=== PATIENT | male | born 2005 | race Two or more races ===

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

== ENCOUNTER 2023-02-16 08:13 | Outpatient (REF) | payer OTHER, SELFPAY ==
[2023-02-16 08:24] LABS: MANUAL DIFF FLAG NO
[2023-02-16 08:33] LABS: Basophils Absolute Auto 0.1 X10*3/uL (0.0-0.2); Eosinophils Absolute Auto 0.3 X10*3/uL (0.0-0.4); Eosinophils Percent Auto 4.5 % (0-4); Hematocrit 45.6 % (42.0-52.0); Imm Gran Abs Auto 0.03 X10*3/uL (0.00-0.03); Imm Gran Pct Auto 0.4 % (0.0-0.4); Lymphocytes Absolute Auto 2.4 X10*3/uL (1.2-4.9); Mean Corpuscular HGB Conc 32.9 g/dl (31.0-36.0); Mean Corpuscular Hemoglobin 28.4 pg (27.0-33.0); Mean Corpuscular Volume 86.4 fL (80.0-98.0); Monocytes Absolute Auto 0.6 X10*3/uL (0.1-1.2); Monocytes Percent Auto 8.7 % (2-11); Neutrophils Absolute Auto 3.6 x10*3/uL (2.0-8.3); Neutrophils Percent Auto 51.4 % (45-73); Platelet Count 246 X10*3/uL (160-400); Red Blood Count 5.28 X10*6/uL (4.60-5.80); Red Cell Distribution Width 12.6 % (11.0-16.0); White Blood Count 7.1 X10*3/uL (4.8-10.8)
[2023-02-16 09:06] LABS: Alanine Aminotransferase 35 U/L (0-40); Albumin Level 4.2 g/dL (3.5-5.0); Alkaline Phosphatase 70 U/L (39-117); Anion Gap 11 (12-20); Aspartate Amino Transferase 19 U/L (5-37); Bilirubin Total 0.9 mg/dL (0.0-1.0); Blood Urea Nitrogen 14 mg/dL (9-16); Calcium 9.3 mg/dL (8.4-10.2); Carbon Dioxide 29 mmol/L (22-29); Chloride 107 mmol/L (96-108); Estimated Glomerular Filt Rate > 60; Glucose Random 88 mg/dL (60-115); Potassium 3.9 mmol/L (3.3-5.1); Sodium 143 mmol/L (135-145); Total Protein 7.4 g/dL (6.5-8.0)
[2023-02-16 09:35] LABS: Folate 15.3 ng/mL (> or = 4.0); TSH reflex Free T4 1.97 uIU/mL (0.32-4.0); Vitamin B12 989 pg/mL (200-900); Vitamin D 25-OH Total 12.8 ng/mL (>30)
== END 2023-02-16 08:14 | disposition home or self-care (01) ==
LOC: HO.LAB 08:13
PROVIDERS: PCP Internal Medicine; Visit Provider Nurse Practitioner Family
DX: Z00.00 Encounter for general adult medical examination without abnormal findings (principal)
CPT/HCPCS: 36415; 80053; 82306; 82607; 82746; 84443; 85025

== ENCOUNTER 2025-06-23 15:49 | Outpatient (AMB) | payer OTHER, SELFPAY ==
--- NOTE | 2025-06-23 15:57 | A.OFFPC_ITS ---
Vital Signs 06/23/25 15:58 Height 5 ft 8 in Weight 212 lb 6 oz BMI 32.3 BP 120/64 Blood Pressure Location Lt brachial Position Sitting Respiration 18 Pulse 73 Pulse Source Pulse Oximeter Temp 97.3 F Temp Source Temporal Artery Scan Pulse Oximetry (%) 95 Oxygen Delivery Method Room Air Intake Visit Reasons: Annual pe Musician Instrumental Required: No Accompanied by: Self / Same As Patient Allergies pine tree Adverse Reaction (Mild, Uncoded 06/23/25 16:20) Swelling Medication List - Last Reconciled 06/23/25 by HEIDI Bloom cholecalciferol (vitamin D3) 50 mcg PO DAILY loratadine (Claritin) 10 mg PO DAILY Tobacco use date assessed: 06/23/25 Dental Screening Dental Screen Date: 06/23/25 Did you have a dental visit in the last 12 months?: Yes Did you have a dental problem in the last 6 months where you did not have access to dental care?: No Was dental information given to patient?: Patient has dentist HPI Annual pe HPI Details The patient is a 20-year-old male presenting for annual physical. He is noted to have allergic rhinitis and vitamin D deficiency. The patient reports allergies primarily to pine tree pollen, which occur seasonally, typically at the start of spring and sometimes in winter. He manages these symptoms with Claritin as needed. The patient has been previously prescribed vitamin D supplements due to low levels, but he does not take them consistently. He acknowledges feeling more tired, which may be related to the deficiency, and is advised to take vitamin D daily. He denies any history of asthma or significant respiratory issues. He also denies any shortness of breath, chest pain, or heartburn. The patient experiences intermittent joint pain, described as soreness around the hip and knee, occurring once a month or every couple of months, often after prolonged standing. There is no associated swelling in the legs. [facility] Medical History (Updated 07/04/25 @ 18:38 by HEIDI Bloom) Joint pain Left knee pain No known health problems Surgical History No pertinent past surgical history Family History Mother No problems noted. Father No problems noted. Social History Housing: House Alcohol intake: never Patient Tobacco Use Status: Never used Tobacco e-Cigarette/Vaping Use: Never Used Second Hand Smoke Exposure: No service: No Current occupational status: unemployed Cognitive needs: No Hearing needs: No Vision needs: No Questionnaire PHQ-9 Over the last 2 weeks, how often have you been bothered by any of the following problems? 1. Little interest or pleasure in doing things: several days 2. Feeling down, depressed, or hopeless: not at all 3. Trouble falling or staying asleep, or sleeping too much: more than half the days 4. Feeling tired or having little energy: more than half the days 5. Poor appetite or overeating: not at all 6. Feeling bad about yourself - or that you are a failure or have let yourself or your family down: several days 7. Trouble concentrating on things, such as reading the newspaper or watching television: not at all 8. Moving or speaking so slowly that other people could have noticed. Or the opposite - being so fidgety or restless that you have been moving around a lot more than usual: not at all 9. Thoughts that you would be better off or of hurting yourself in some way: not at all Total score: 6 Depression Screening Interpretation: Positive Depression Screening Done: Yes 24844 - PHQ-9 Billing: Yes Source: Developed by Drs. David Laguna, Laury Umana, Arnoldo Burger and colleagues, with an educational carlos from [employer]. Thrive Questionnaire Date Thrive assessed: 06/23/25 I am a: Patient What is your living situation today?: I have a steady place to live Within the past 12 months, did the food you bought not last and you didn't have the money to get more?: Never true Within the past 12 months, did you worry whether your food would run out before you got money to buy more?: Never true Do you have trouble paying for medicines?: No Do you have trouble getting transportation to medical appointments?: No Do you have trouble paying your heating and electricity bill?: No Do you have trouble taking care of your child, family member or friend?: No Do you have trouble with day-to-day activities such as bathing, preparing meals, shopping, managing finances, etc.?: No Are you currently unemployed and looking for a job?: No Are you interested in more education?: No Please select the resources that you would like help with: None Currently or been in a relationship where the following occur: No concerns reported THRIVE Score: 0 AUDIT C Alcohol Use Questionnaire (AUDIT-C) 1. How often do you have a drink containing alcohol?: Monthly or less 2. How many drinks containing alcohol do you have on a typical day when you are drinking?: 1 or 2 3. How often do you have six or more drinks on one occasion?: Never Total Score: 1 CORINNE-7 AMB Questionnaire CORINNE-7 Date CORINEN - 7 assessed: 06/23/25 Feeling nervous, anxious, or on edge: 3 = Nearly every day Not being able to stop or control worryin = Not at all Worrying too much about different things: 2 = More than half the days Trouble relaxin = More than half the days Being so restless that it is hard to sit still: 2 = More than half the days Becoming easily annoyed or irritable: 2 = More than half the days Feeling afraid as if something awful might happen: 2 = More than half the days Total CORINNE-7 score (0-4 normal; 5-9 mild; 10-14 moderate; 15-21 severe): 13 Source: Developed by Drs. David Laguna, Laury Umana, Arnoldo Burger and colleagues, with an educational carlos from [employer]. CORINNE-7 Assessment Billing CORINNE-7 Assessment Tool: CORINNE-7 Assessment 60014 Review of Systems Const Denies headache(s) Eyes Denies loss of vision ENT Denies vertigo, Denies dizziness, Denies headache(s) and Denies sore throat Card Denies chest pain, Denies leg edema and Denies lightheadedness Resp Denies cough, Denies hemoptysis and Denies wheezing GI Denies abdominal pain, Denies melena, Denies constipation, Denies diarrhea and Denies vomiting Denies dysuria, Denies urinary frequency and Denies urinary urgency Musc Denies arthralgias, Denies joint swelling, Denies numbness and Denies tingling Neuro Denies Abnormal speech present, Denies behavioral changes, Denies vertigo, Denies dizziness, Denies headache(s), Denies loss of vision, Denies memory loss, Denies numbness and Denies tingling Psych Denies anxiety, Denies behavioral changes, Denies depression, Denies memory loss and Denies panic attacks Chris/Lymph Denies easy bleeding and Denies easy bruising Aller/Immun Denies wheezing Physical exam (Primary Care) Vital Signs: Last Vital Signs Temp 97.3 F 06/23/25 15:58 Pulse 73 06/23/25 15:58 Resp 18 06/23/25 15:58 BP 120/64 06/23/25 15:58 Pulse Ox 95 06/23/25 15:58 Oxygen Delivery Method Room Air 06/23/25 15:58 BMI result Body Mass Index 32.3 Tobacco/Smoking Status: Tobacco use Status Tobacco use date assessed 06/23/25 06/23/25 16:05 Patient Tobacco Use Status Never used Tobacco 06/23/25 16:05 e-Cigarette/Vaping Use Never Used 06/23/25 16:05 PHQ-9: PHQ-9 Score PHQ-9: Total score 6 06/23/25 16:19 Depression Screening Interpretation: Positive Thrive Assessment: Date of Thrive Assessment Date Thrive assessed 06/23/25 06/23/25 16:05 Currently or been in a relationship where the following occur: No concerns reported Const General: healthy appearing, no acute distress, alert and awake Nutritional Appearance: well nourished Orientation/consciousness: oriented to person, oriented to place and oriented to time HENMT Ears: TM's normal bilaterally General nose exam: Normal nasal mucous membranes and turbinates present Eyes Conjunctivae: conjunctivae normal Sclerae: sclerae normal Pupils: Equal, round and reactive pupils present Neck Neck: Yes no lymphadenopathy and Yes no JVD Thyroid: Thyroid normal Carotids: no bruits Resp Effort & Inspection: normal respiratory effort and not tachypneic Auscultation: no crackles, no rales, no rhonchi and no wheezes Cardio Rate: regular rate Rhythm: regular rhythm Heart sounds: no murmurs and normal S1 and S2 GI Palpation (GI): Soft to palpation, nontender, no hepatomegaly and no splenomegaly Auscultation: normal bowel sounds Skin General skin exam: no rashes or lesions noted and dry skin Neuro General: oriented to person, oriented to place and oriented to time Cranial nerves: Yes Equal, round and reactive pupils present Speech: No Abnormal speech present Gait exam (Neuro): Normal gait present Motor exam (neuro): no tremor noted Deep tendon reflexes (DTR's): Right triceps reflex intensity grade: 2+, Left triceps reflex intensity grade: 2+, Rt Biceps (C5, C6): 2+, Left biceps reflex intensity grade: 2+, Right brachioradialis reflex intensity grade: 2+, Left brachioradialis reflex intensity grade: 2+, Right patellar reflex intensity grade: 2+ and Left patellar reflex intensity grade: 2+ Extrem Right upper extremity: full ROM Left upper extremity: full ROM Right lower extremity: full ROM; no edema Left lower extremity: full ROM; no edema Psych Mental Status: mental status grossly normal Speech and movement: Normal speech and movement present Affect: normal affect Attitude: cooperative Thought process: Normal thought process present Coding Level of Care Code Est Pt Prev Care 18-39y(88910) Diagnoses Annual physical exam Z00.00 Back tightness M53.80 Low vitamin D level R79.89 Arthralgia, unspecified joint M25.50 Joint pain location: unspecified Additional Codes PHQ-9 - 98680 - PHQ-9 Billing: Yes ([id number]) CORINNE-7 Assessment Billing - CORINNE-7 Assessment Tool: CORINNE-7 Assessment 27888 ([id number]) Time Spent (min) 34 Assessment & Plan Assessment & Plan (1) Annual physical exam: Code(s): Z00.00 - Encounter for general adult medical examination without abnormal findings Category: Medical Plan: Preventative guidelines reviewed with the patient. No recent labs since 2022. Labs ordered, we will advise. He is up-to-date on immunizations. (2) Back tightness: Code(s): M53.80 - Other specified dorsopathies, site unspecified Category: Medical Plan: History of back tightness. Resolved, denies back pain. (3) Low vitamin D level: Code(s): R79.89 - Other specified abnormal findings of blood chemistry Category: Medical Plan: Encouraged compliance with cholecalciferol 50 mcg daily (4) Joint pain: Code(s): M25.50 - Pain in unspecified joint Category: Medical Qualifiers: Joint pain location: unspecified Qualified Code(s): M25.50 - Pain in unspecified joint Plan: Describes has soreness in hips and knees infrequently. The patient reports soreness in the hip and knee, occurring intermittently, often after prolonged standing. No specific treatment is discussed, but monitoring for any progression or increase in frequency is advised. Orders: Orders Complete Blood Count Auto Diff 06/23/25 R79.89 - Other specified abnormal findings of blood chemistry, M53.80 - Other specified dorsopathies, site unspecified, Z00.00 - Encounter for general adult medical examination without abnormal findings Lipid Panel 06/23/25 R79.89 - Other specified abnormal findings of blood chemistry, M53.80 - Other specified dorsopathies, site unspecified, Z00.00 - Encounter for general adult medical examination without abnormal findings UA CC w/rflx Micro + Cult 06/23/25 R7.89 - Other specified abnormal findings of blood chemistry, M53.80 - Other specified dorsopathies, site unspecified, Z00.00 - Encounter for general adult medical examination without abnormal findings TSH reflex Free T4 06/23/25 R7.89 - Other specified abnormal findings of blood chemistry, M53.80 - Other specified dorsopathies, site unspecified, Z00.00 - Encounter for general adult medical examination without abnormal findings Comprehensive [place]. Panel Fast 06/23/25 R79.89 - Other specified abnormal findings of blood chemistry, M53.80 - Other specified dorsopathies, site unspecified, Z00.00 - Encounter for general adult medical examination without abnormal findings Vitamin D 25-OH Total 06/23/25 R79.89 - Other specified abnormal findings of blood chemistry, M53.80 - Other specified dorsopathies, site unspecified, Z00.00 - Encounter for general adult medical examination without abnormal findings
[2025-06-23 15:58] VITALS: BP 120/64; PULSE 73; RESP 18; TEMP 36.3; O2SAT 95; BMI 32.3
--- OUTSIDE RECORDS SUMMARY | 2025-06-23 16:58 | XMS_ITS | Clinical Summary ---
Author Organization [facility] Address [address] [place] [address] Care Team Providers Care Recreation Facilities Supervisor Name Role Phone Marlen Hairston [facility] Primary Care Provider [phone] Source Comments PLEASE NOTE, if this patient is a minor, it may be UNLAWFUL to discuss sensitive information that is contained in these records (such as FAMILY PLANNING, MENTAL HEALTH or SUBSTANCE ABUSE) with the minor patient's parent or other person without the patient's specific authorization.[facility] Allergies No known active allergies Medications ibuprofen 600 mg tabletIndication s:Chronic bilateral low back pain without sciatica Take 1 Tablet by mouth 3 (three) times daily as needed for pain 60 Tablet 1 12/05/2020 Active acetaminophen (TYLENOL) 500 mg tabletIndication s:Chronic bilateral low back pain without sciatica Take 1 Tablet by mouth every 6 (six) hours as needed for pain 60 Tablet 1 12/05/2020 Active methocarbamoL (ROBAXIN) 500 mg tabletIndication s:Neck strain, initial encounter Take 1 Tablet by mouth 3 (three) times daily as needed for other reason (neck pain) 20 Tablet 1 04/11/2021 Active Active Problems Problem Noted Date Diagnosed Date Tremor of both hands 03/26/2018 Environmental allergies 09/02/2015 Acne vulgaris 08/18/2015 ADHD (attention deficit hyperactivity disorder) 08/17/2015 Resolved Problems Problem Noted Date Diagnosed Date Resolved Date Asthma ([facility]) 10/19/2015 Immunizations Immunization Administration Dates Next Due DTAP (DAPTACEL),5 PERTUSSIS ANTIGENS ,10/29/2004,2003,10/12,2003 Flu, Preservative Free 12/05/2020,08/28/2019,03/2017 HEP B, PED/ADOL (WJFDBLY-X-TIGP/RECOMBIVAX-PEDS) 2003,2003,2003 HPV, QUADRIVALENT 04/13/2014,06/26/2013,03/26/20 13 Hep A, Ped/adol, 2 Dose 09/11/2010,07/30/2008 Hib (HbOC) 10/29/2004, 4,2003,08/10 INFLUENZA, SEASONAL, INJECTABLE 11/05/19 15,06/26/2013,12/22/2007,10/03 IPV (IPOL) 12/02/2009, 4,2003,08/10 MENINGOCOCCAL B (Bexsero), OMV 04/11/2021,2020 MENINGOCOCCAL MCV4P (MENACTRA) 08/28/2019,2014 MENINGOCOCCAL VACCINE,CONJUG ATE (NON-INTERFACE) 02/10/2015 MMR (MMR II/Priorix) 07/30/2008,06/14/2004 PFIZER COVID VACCINE, PURPLE CAP, 12+ 04/06/2021 ,03/04/2021 PNEUMOCOCCAL CONJUGATE PCV 7 2003,10/12/20 03,2003 TDAP 02/10/2015 Varicella (Varivax), Live Vaccine 06/26/2007,10/2004 Family History Medical History Relation Name Comments Diabetes Maternal Grandfather Hypertension Mother Relation Name Status Comments Maternal Grandfather Mother Social History Tobacco Use Types Packs/Day Years Used Date Smoking Tobacco: Never Smokeless Tobacco: Never Alcohol Use Standard Drinks/Week Comments No 0 (1 standard drink = 0.6 oz pur e alcohol) Social Connections Answer Date Recorded Connectedness 0 07/16/2024 Financial Resource Strain Answer Date R ecorded Financial Resource Strain 0 2018 Stress Answer Date Recorded Stress 0 06/21/2019 Physical Activity Answer Date Recorded Physical Activity 0 06/21/2019 Food Insecurity Answer Date Recorded Food 0 07/23/2024 Transportation Needs Answer Date Record ed Transportation 0 06/21/2019 Housing Stability Answer Date Recorded Housing 0 06/21/2019 Safety and Environment Answer Date Devon rded Safety 0 06/21/2019 Utilities Answer Date Recorded Utilities 0 06/21/2019 Employment Answer Date Recorded Stress 0 07/16/2024 Sex and Gender Information Value Date Recorded Sex Assigned at Male 05/29/2019 12:49 PM PDT Legal Sex Male 12:36 PM PDT Gender Identity Male 05/29/2019 12:49 PM PDT Sexual Orientation Not on file Last Filed Vital Signs Vital Sign Reading Time Taken Comments Blood Pressure 143/84 04/11/2021 11:27 AM EDT Pulse 68 04/11/2021 11:27 AM EDT Temperature 36.6 C (97.8 F) 04/11/2021 11:27 AM EDT Respiratory Rate 16 04/11/2021 11:27 AM EDT Oxygen Saturation 98% 04/11/2021 11:27 AM EDT Inhaled Oxygen Concentration - - Weight 80.1 kg (176 lb 9.6 oz) 04/11/2021 11:27 AM EDT Height 173.4 cm (5' 8.27 ) 04/11/2021 11:27 AM E DT Body Mass Index 26.64 04/11/2021 11:27 AM EDT Plan of Treatment Health Maintenance Due Date Last Done Comments Anxiety Screening 2003 Hepatitis C Screening 2003 Tobacco Screening 2003 HIV Screening 2018 Hypertension Screening (#1) 04/10/2024 Lom-QRYEQ-80 ( season) 2024 11/15/2021, 04/06/2021, 03/04/2021 Alcohol and Drug Screen 10/28/2024 03/03/20, 03/03/2021, 05/29/2019, Additional history exists Depression Annual Screen 10/28/2024 Imm-DTaP/Tdap/Td (7 - Td or Tdap) 02/10/2025 02/10/2015, 06/26/2007, 10/29/2004, Additional history exists Imm-Influenza (#1) 2025 12/05/2020, 1 10/28/2018, 10/02/2017, Additional history exists Imm-Hepatitis B Completed 2003, 09/27, 2003 Imm-Varicella Completed 06/26/2007, 11/28/2004 Imm-Hepatitis A Completed 09/11/2010, 07/30/2008 Imm-HPV Completed 04/13/2014, 05/30, 03/26/2013 Imm-Meningococcal B Completed 04/11/2021, Insurance [facility] Member Subscriber Plan / Payer (Ef fective 2021-Present) Name:Shanice Goyalhannah Mtz Relation to Subscriber:Self Name:Jay Jay Raj L Payer ID:[id number] Group ID:[id number] Type:Medicaid Address: [facility] [address] [place] [address] Care Teams Recreation Facilities Supervisor Relationship Specialty Start Date End Date Marlen Hairston FNP [address] [place] [address] PCP - General Internal Medicine 05/19/19
== END 2025-06-23 16:31 | disposition home or self-care (01) ==
LOC: HO.HMCH 15:49
PROVIDERS: PCP Internal Medicine
DX: Z00.00 Encounter for general adult medical examination without abnormal findings (principal); M53.80 Other specified dorsopathies, site unspecified; R79.89 Other specified abnormal findings of blood chemistry; M25.50 Pain in unspecified joint

== ENCOUNTER → 2025-06-23 15:49 | Outpatient (BNVA) | payer OTHER, SELFPAY | PROVIDERS: PCP Internal Medicine | DX: Z00.00 Encounter for general adult medical examination without abnormal findings (principal); J30.9 Allergic rhinitis, unspecified; E55.9 Vitamin D deficiency, unspecified; M53.80 Other specified dorsopathies, site unspecified; M25.50 Pain in unspecified joint; R79.89 Other specified abnormal findings of blood chemistry | CPT/HCPCS: 96127; 99395 ==